=== PATIENT | female | born 1970 | race Caucasian/White ===

== ENCOUNTER 2020-09-10 15:49 | Emergency (ER) | payer BC ==
[~2020-09-10] VITALS: Ht 157.5 cm; Wt 74.8 kg
[2020-09-10] MEDS ORDERED: HYDROCODON-ACE1 EAC7 PO (17:11)
[2020-09-10] MEDS ORDERED: IBUPROFEN 600600 M1 PO (17:11)
[2020-09-10 17:30] VITALS: BP 165/75
== END 2020-09-10 17:31 | disposition home or self-care (01) ==
LOC: M.ERS 15:49
DX: S82.432A Displaced oblique fracture of shaft of left fibula, initial encounter for closed fracture (principal); S82.52XA Displaced fracture of medial malleolus of left tibia, initial encounter for closed fracture; Z88.0 Allergy status to penicillin; X50.1XXA Overexertion from prolonged static or awkward postures, initial encounter; Y93.89 Activity, other specified; Y92.89 Other specified places as the place of occurrence of the external cause; Y99.8 Other external cause status